=== PATIENT | male | born 1990 | race Caucasian/White ===

== ENCOUNTER 2020-04-06 12:44 | Outpatient (REF) | payer OTHER, SELFPAY ==
--- NOTE | 2020-04-06 14:19 | ECG_ITS ---
Test Reason : CP Blood Pressure : / mmHG Vent. Rate : 081 BPM Atrial Rate : 081 BPM P-R Int : 154 ms QRS Dur : 096 ms QT Int : 352 ms P-R-T Axes : 019 -10 013 degrees QTc Int : 408 ms Normal sinus rhythm Minimal voltage criteria for LVH, may be normal variant Borderline ECG No previous ECGs available Referred By: Mago Hoover Electronically Signed By:MARGY HERNANDEZ MD
[2020-04-06 14:39] LABS: MANUAL DIFF FLAG NO
--- NOTE | 2020-04-06 14:41 | XR_ITS ---
EXAMINATION: XR CHEST CLINICAL INFORMATION: Preprocedure COMPARISON: March 15, 2016 TECHNIQUE: 2 views of the chest were obtained. FINDINGS: No significant abnormality is noted involving the heart, lungs, mediastinum, bony thorax or soft tissues. XR/XR chest 2V IMPRESSION: No acute disease.
[2020-04-06 14:42] LABS: Basophils Percent Auto 0.4 % (0-2); Eosinophils Percent Auto 1.9 % (0-4); Hematocrit 43.7 % (42-52); Hemoglobin 13.6 g/dl (14.0-18.0); Imm Gran Pct Auto 0.5 % (0.0-0.4); Lymphocytes Percent Auto 25.4 % (20-40); Mean Corpuscular HGB Conc 31.1 g/dl (31.0-36.0); Mean Corpuscular Hemoglobin 25.2 pg (27.0-33.0); Mean Corpuscular Volume 80.9 fL (80-98); Mean Platelet Volume 9.7 fL (9.4-12.4); Monocytes Percent Auto 7.2 % (2-11); Neutrophils Percent Auto 64.6 % (45-73); Platelet Count 317 X10*3/uL (160-400); Red Cell Distribution Width 13.2 % (11.0-16.0); White Blood Count 7.9 X10*3/uL (4.8-10.8)
[2020-04-06 14:43] LABS: Eosinophils Absolute Auto 0.2 X10*3/uL (0.0-0.4); Imm Gran Abs Auto 0.04 X10*3/uL (0.00-0.03); Monocytes Absolute Auto 0.6 X10*3/uL (0.1-1.2); Neutrophils Absolute Auto 5.1 X10*3/uL (2.0-8.3)
[2020-04-06 14:57] LABS: Estimated Average Glucose 128 mg/dL; Hemoglobin A1C 150.9806 umol/L; Hemoglobin A1c % 6.1 %
[2020-04-06 15:10] LABS: Alanine Aminotransferase 29 U/L (0-40); Albumin Level 3.9 g/dL (3.5-5.0); Alkaline Phosphatase 62 U/L (39-117); Anion Gap 11 (12-20); Aspartate Amino Transferase 18 U/L (5-37); Bilirubin Total 0.5 mg/dL (0.0-1.0); Blood Urea Nitrogen 13 mg/dL (9-16); C Reactive Protein 1.04 mg/dL (< or = 0.50); Carbon Dioxide 32 mmol/L (22-29); Chloride 102 mmol/L (96-108); Cholesterol 137 mg/dL; Estimated Glomerular Filt Rate > 60; Glucose Random 114 mg/dL (60-115); HDL Cholesterol 33 mg/dL; Iron 73 mcg/dL (45-160); LDL Cholesterol Calculated 65 mg/dl; Percent Iron Saturation 22 % (15-50); Potassium 4.4 mmol/l (3.3-5.1); Sodium 141 mmol/L (135-145); Total Iron Binding Capacity 327 mcg/dL (228-428); Total Protein 7.1 g/dL (6.5-8.0); Triglycerides 196 mg/dL; Unsaturated Iron Binding 254 ug/dL
[2020-04-06 15:33] LABS: Ferritin 69 ng/mL (20-250); TSH reflex Free T4 2.14 mIU/mL (0.32-4.0); Vitamin D 25-OH Total 6.2 ng/mL (>30)
[2020-04-06 15:43] LABS: Folate 9.9 ng/mL (> or = 4.0); Vitamin B12 521 pg/mL (200-900)
[2020-04-07 16:52] LABS: Calcium (PTHI) 9.4 mg/dL (8.6-10.3); PTHI 53 pg/mL (14-64)
[2020-04-07 19:37] LABS: Insulin Level Total 26.2 uIU/mL
[2020-04-08 14:52] LABS: H Pylori Breath Test NOT DETECTED (NOT DETECTED)
[2020-04-09 16:07] LABS: Zinc 75 mcg/dL (60-130)
[2020-04-11 06:33] LABS: Vitamin B1 7 nmol/L (8-30)
[2020-04-12 17:47] LABS: Vitamin A 37 mcg/dL (38-98)
== END 2020-04-06 12:45 | disposition home or self-care (01) ==
LOC: HO.LAB 12:44
PROVIDERS: PCP Internal Medicine; Visit Provider Physician Assistant
DX: Z01.818 Encounter for other preprocedural examination (principal); E66.01 Morbid (severe) obesity due to excess calories; J45.909 Unspecified asthma, uncomplicated; G47.30 Sleep apnea, unspecified; Z88.0 Allergy status to penicillin; Z90.3 Acquired absence of stomach [part of]; Z68.44 Body mass index [BMI] 60.0-69.9, adult; Z98.84 Bariatric surgery status
CPT/HCPCS: 36415; 71046; 80053; 80061; 82306; 82607; 82728; 82746; 83013; 83036; 83525; 83540; 83970; 84425; 84443; 84590; 84630; 85025; 86140; 93005; 93225

== ENCOUNTER → 2020-04-21 08:42 | Outpatient (BNVA) | payer OTHER, SELFPAY | PROVIDERS: PCP Internal Medicine; Visit Provider Physician Assistant ==

== ENCOUNTER → 2020-05-05 13:56 | Outpatient (BNVA) | payer OTHER, SELFPAY | PROVIDERS: PCP Internal Medicine; Visit Provider Surgery | DX: E55.9 Vitamin D deficiency, unspecified (principal); Z01.818 Encounter for other preprocedural examination ==

== ENCOUNTER → 2020-05-19 08:26 | Outpatient (BNVA) | payer OTHER, SELFPAY | PROVIDERS: PCP Internal Medicine; Visit Provider Dietitian, Registered ==

== ENCOUNTER → 2020-05-25 15:44 | Outpatient (BNVA) | payer OTHER, SELFPAY | PROVIDERS: PCP Internal Medicine; Visit Provider Surgery | DX: E55.9 Vitamin D deficiency, unspecified (principal); Z01.818 Encounter for other preprocedural examination ==

== ENCOUNTER → 2020-06-09 15:51 | Outpatient (BNVA) | payer OTHER, SELFPAY | PROVIDERS: PCP Internal Medicine; Visit Provider Surgery | DX: E55.9 Vitamin D deficiency, unspecified (principal); Z01.818 Encounter for other preprocedural examination ==

== ENCOUNTER → 2020-06-20 15:31 | Outpatient (BNVA) | payer OTHER, SELFPAY | PROVIDERS: PCP Internal Medicine; Visit Provider Surgery | DX: E55.9 Vitamin D deficiency, unspecified (principal); Z01.818 Encounter for other preprocedural examination ==

== ENCOUNTER → 2020-06-23 14:00 | Outpatient (BNVA) | payer OTHER, SELFPAY | PROVIDERS: PCP Internal Medicine; Visit Provider Physician Assistant ==

== ENCOUNTER 2020-07-19 05:51 | Inpatient (IN) | payer OTHER, SELFPAY ==
--- NOTE | 2020-07-13 09:31 | ECG_ITS ---
Test Reason : SOB Blood Pressure : / mmHG Vent. Rate : 078 BPM Atrial Rate : 078 BPM P-R Int : 178 ms QRS Dur : 106 ms QT Int : 372 ms P-R-T Axes : 046 -12 039 degrees QTc Int : 424 ms Normal sinus rhythm Normal ECG When compared with ECG of 06-APR-2020 14:34, No significant change was found Referred By: Lina Sloan Electronically Signed By:Flaco Toledo
[2020-07-13 10:25] LABS: MANUAL DIFF FLAG NO
[2020-07-13 10:55] LABS: Basophils Percent Auto 0.3 % (0-2); Eosinophils Absolute Auto 0.2 X10*3/uL (0.0-0.4); Eosinophils Percent Auto 1.5 % (0-4); Hematocrit 46.9 % (42-52); Hemoglobin 14.4 g/dl (14.0-18.0); Imm Gran Abs Auto 0.02 X10*3/uL (0.00-0.03); Imm Gran Pct Auto 0.2 % (0.0-0.4); Lymphocytes Absolute Auto 2.6 X10*3/uL (1.2-4.9); Lymphocytes Percent Auto 25.6 % (20-40); Mean Corpuscular HGB Conc 30.7 g/dl (31.0-36.0); Mean Corpuscular Volume 81.4 fL (80-98); Mean Platelet Volume 10.9 fL (9.4-12.4); Monocytes Absolute Auto 0.7 X10*3/uL (0.1-1.2); Monocytes Percent Auto 7.1 % (2-11); Neutrophils Absolute Auto 6.6 X10*3/uL (2.0-8.3); Neutrophils Percent Auto 65.3 % (45-73); Platelet Count 347 X10*3/uL (160-400); Red Blood Count 5.76 X10*6/uL (4.60-5.80); Red Cell Distribution Width 13.8 % (11.0-16.0); White Blood Count 10.1 X10*3/uL (4.8-10.8)
[2020-07-13 10:58] LABS: INTERNATIONAL NORM RATIO 1.2 (0.9-1.1); Prothrombin Time 14.1 SEC (10.8-13.0)
[2020-07-13 11:00] LABS: Glucose Urine UA NEG (NEG); Leukocyte Esterase Urine NEG (NEG); Nitrite Urine NEG (NEG); Specific Gravity - Urine >= 1.030 (1.005-1.025); Urine Blood NEG (NEG); Urine Ketones NEG (NEG); Urine Protein NEG (NEG-TRACE)
[2020-07-13 11:05] LABS: Appearance Urine CLEAR; Color Urine YELLOW
[2020-07-13 11:12] LABS: Albumin Level 4.3 g/dL (3.5-5.0); Anion Gap 12 (12-20); Blood Urea Nitrogen 16 mg/dL (9-16); Calcium 9.5 mg/dL (8.4-10.2); Carbon Dioxide 31 mmol/L (22-29); Chloride 102 mmol/L (96-108); Estimated Glomerular Filt Rate > 60; Glucose Random 80 mg/dL (60-115); Potassium 3.8 mmol/L (3.3-5.1); Sodium 141 mmol/L (135-145)
[2020-07-13 11:26] LABS: Partial Thromboplastin Time 48.1 SEC (24.1-38.0)
[2020-07-14 09:58] VITALS: BMI 55.0
--- NOTE | 2020-07-16 13:06 | MHC.SHP ---
Pre-Procedural Eval Section B Chief Complaint: Morbid Severe Obesity Allergies: Allergies Allergy/AdvReac Type Severity Reaction Status Date / Time Penicillins [PENICILLINS] Allergy Unknown Hives Verified 07/14/20 09:57 Plan I have reviewed the history and physical and performed a pertinent physical examination on my patient. No changes have occurred unless specified.
[2020-07-19] VITALS (26 sets, daily range): BP systolic 118–165; BP diastolic 70–101; PULSE 82–97; RESP 14–20; TEMP 36.3–38.1; O2SAT 92–100
[2020-07-19 09:51] LABS: COVID-19 Test Negative (Negative)
[2020-07-19] MEDS: Lactated Ringers 1,000 ML 50 ML IV (10:20)
--- NOTE | 2020-07-19 11:31 | HO.ANESPROP2 ---
[facility] Active Problems Active Problems: All Active Problems (Updated 06/20/20 @ 15:54 by Lina Sloan MD) Shortness of breath (Acute) Preoperative examination (Acute) Adjustment disorder, unspecified (Acute) BMI 50.0-59.9, adult (Acute) Morbid obesity with BMI of 60.0-69.9, adult (Acute) Asthma (Acute) Morbid obesity (Acute) Past Medical History Medical History Sleep apnea with use of continuous positive airway pressure (CPAP) Vitamin D deficiency Family History Family History Father No problems noted. Mother No problems noted. Sister No problems noted. Sister No problems noted. Brother No problems noted. Surgical History Surgical History No pertinent past surgical history Social History Social History Are you a primary rn urgent care to a significant other at home: No Do you presently have visiting nurse or other home services: No Alcohol intake: never Smoking Status: Never smoker Use of substances other than those prescribed or required for medical reasons: No Have you been hit, kicked, punched, or otherwise hurt by someone within the past year? If so, by whom?: No Advance Directives: No Advance Directives Information Provided: No Advance Directives on File: No Recently lost weight without trying: No Meds Allergies Allergy/AdvReac Type Severity Reaction Status Date / Time Penicillins [PENICILLINS] Allergy Unknown Hives Verified 07/14/20 09:57 Home Medications Medication Instructions Recorded Confirmed Last Taken Type multivitamin 1 tab PO DAILY 05/25/20 07/14/20 Unknown History Exam Exam Date and Time: July 19, 2020 1131 Height,Weight and Vital Signs: Height 5 ft 6.5 in Weight 156.943 kg Last Vital Signs Temp 98.7 F 07/19/20 09:52 Pulse 90 07/19/20 09:52 Resp 16 07/19/20 09:52 BP 118/70 07/19/20 09:52 Pulse Ox 93 07/19/20 09:52 Pertinent Lab Results Pertinent Lab Results: Laboratory Tests 07/13/20 07/13/20 07/13/20 09:25 09:25 09:25 WBC 10.1 RBC 5.76 Hgb 14.4 Hct 46.9 MCV 81.4 MCH 25.0 L MCHC 30.7 L RDW 13.8 Plt Count 347 MPV 10.9 Immature Gran % (Auto) 0.2 Neut % (Auto) 65.3 Lymph % (Auto) 25.6 [place] % (Auto) 7.1 Eos % (Auto) 1.5 Baso % (Auto) 0.3 Lymph # (Auto) 2.6 [place] # (Auto) 0.7 Eos # (Auto) 0.2 Baso # (Auto) 0.0 Abs Immat Gran (auto) 0.02 Absolute Neuts (auto) 6.6 Absolute Nucleated RBC 0.000 Nucleated RBC % (auto) 0.0 PT 14.1 H INR 1.2 H APTT 48.1 H Sodium Potassium Chloride Carbon Dioxide Anion Gap BUN Creatinine Estim Creat Clear Calc Estimated GFR Random Glucose Calcium Albumin 25-OH Vitamin D Total Urine Color YELLOW Urine Appearance CLEAR Urine pH 6.0 Ur Specific [place] >= 1.030 H Urine Protein NEG Urine Glucose (UA) NEG Urine Ketones NEG Urine Blood NEG Urine Nitrite NEG Ur Leukocyte Esterase NEG COVID-19 ([facility]) COVID-19 Clin Com Blood Type Antibody Screen 07/13/20 07/13/20 07/19/20 09:25 09:25 09:27 WBC RBC Hgb Hct MCV MCH MCHC RDW Plt Count MPV Immature Gran % (Auto) Neut % (Auto) Lymph % (Auto) [place] % (Auto) Eos % (Auto) Baso % (Auto) Lymph # (Auto) [place] # (Auto) Eos # (Auto) Baso # (Auto) Abs Immat Gran (auto) Absolute Neuts (auto) Absolute Nucleated RBC Nucleated RBC % (auto) PT INR APTT Sodium 141 Potassium 3.8 Chloride 102 Carbon Dioxide 31 H Anion Gap 12 BUN 16 Creatinine 0.91 Estim Creat Clear Calc TNP Estimated GFR > 60 Random Glucose 80 Calcium 9.5 Albumin 4.3 25-OH Vitamin D Total 23.0 Urine Color Urine Appearance Urine pH Ur Specific [place] Urine Protein Urine Glucose (UA) Urine Ketones Urine Blood Urine Nitrite Ur Leukocyte Esterase COVID-19 ([facility]I) Negative COVID-19 Clin Com See Note Blood Type O Positive Antibody Screen NEGATIVE Airway Mallampati Class: II TM Dist: >3cm Neck ROM: Full Heart: RRR Lungs: CTA
--- NOTE | 2020-07-19 13:57 | PM.OP ---
Brief Operative Note Date of Service: 07/19/20 Pre-op diagnosis: Morbid obesity, BMI Post-op diagnosis: same Procedure: Laparoscopic sleeve gastrectomy, neeru block, and intraoperative endoscopy Implants: None Surgeon: Lina Sloan MD Anesthesia: GETA Estimated blood loss (mL): 5 Pathology: other (Partial gastrectomy) Condition: stable Disposition: PACU
--- NOTE | 2020-07-19 13:57 | PM.PNGS ---
Subjective Subjective Date of Service: 07/20/20 <Sherri Pike PA-C - Last Filed: 07/20/20 16:51> 07/20/20 <Lina Sloan MD - Last Filed: 07/20/20 09:23> Interval history: POD #1: Patient is doing well. Has been ambulating, using the incentive spirometer, and tolerating po liquids. No nausea or abdominal pain. Has some mild incisional pain. <Sherri Pike PA-C - Last Filed: 07/20/20 16:51> Pod #1 s/p lap sleeve gastrectomy. Doing well. Tolerating stage 3 diet, ambulating in hallway. Pain well controlled. Denies nausea or vomiting. Vitals and labs reviewed and are within limit for post op day 1. On exam, patient is well appearing, abdomen is soft, nd, mild appropriate incisional tenderness. Incisions c/d/I with dermabond in place. Plan: d/c home today. Follow up with me in 2 weeks. <Lina Sloan MD - Last Filed: 07/20/20 09:23> Physical Exam Vital Signs: Vital Signs: Last Vital Signs Temp 100.5 F H 07/19/20 13:45 Pulse 86 07/19/20 13:54 Resp 18 07/19/20 13:54 BP 155/94 H 07/19/20 13:54 Pulse Ox 96 07/19/20 13:54 Body Mass Index 55.0 <Sherri Pike PA-C - Last Filed: 07/20/20 16:51> Const: General: cooperative, comfortable, no acute distress, alert and awake <Sherri Pike PA-C - Last Filed: 07/20/20 16:51> Nutritional Appearance: obese <Sherri Pike PA-C - Last Filed: 07/20/20 16:51> GI: Inspection: Yes normal to inspection, Yes incision (normal, slight erythema at site of surgical glue, no tenderness/warmth/drai) and Yes obesity <Sherri Pike PA-C - Last Filed: 07/20/20 16:51> Extrem: Right lower extremity: lower leg Details: no tenderness; no edema <Sherri Pike PA-C - Last Filed: 07/20/20 16:51> Left lower extremity: lower leg Details: no tenderness; no edema <VERENICE Newman Last Filed: 07/20/20 16:51> Progress Note: A&P Assessment and plan (1) Morbid obesity with BMI of 60.0-69.9, adult: Status: Acute <Sherri Pike PA-C - Last Filed: 07/20/20 16:51> (2) Intestinal malabsorption following gastrectomy: Status: Acute <Sherri Pike PA-C - Last Filed: 07/20/20 16:51> (3) S/P laparoscopic sleeve gastrectomy: Status: Acute <VERENICE Newman Last Filed: 07/20/20 16:51> Assessment and Plan: POD #1: Patient is doing well and will be discharged home today. All the discharge instructions were reviewed with the patient and given in writing. Patient will follow up as scheduled in 2 weeks. <Sherri Pike PA-C - Last Filed: 07/20/20 16:51> Fall Risk Details Current Medications: Current Medications Generic Name Dose Route Start Last Admin Trade Name Freq PRN Reason Stop Dose Admin Fentanyl 25 mcg 07/19/20 11:33 Fentanyl Citrate/Pf 100 Mcg/2 Ml Vial IVPUSH Q5M PRN Pain, Moderate (Pain Scale 4-6 Lactated Ringer's 1,000 mls @ 50 mls/hr 07/19/20 11:45 07/19/20 10:20 Lr IV 50 mls/hr .Q20H ANNIKA Administration Ondansetron HCl 4 mg 07/19/20 11:33 Ondansetron Hcl 4 Mg/2 Ml Vial IVPUSH ONCE PRN Nausea and Vomiting Oxycodone HCl 5 mg 07/19/20 11:33 Oxycodone Hcl Immed Release 5 Mg Tablet PO ONCE PRN Pain, Severe (Pain Scale 7-10) <VERENICE Newman Last Filed: 07/20/20 16:51> Time Spent With Patient Time: Total time spent is greater than 50% in coordination of care (as documented) at patient's floor/unit and/or counseling patient: <VERENICE Newman Last Filed: 07/20/20 16:51> Time with patient: less than 15 minutes <Lina Sloan MD - Last Filed: 07/20/20 09:23>
--- NOTE | 2020-07-19 13:58 | P.OP_ITS ---
Operative Note Operative Note Date of Service: 07/19/20 Narrative: Patient was brought into the operating room and placed on the operating room table in the supine position. General anesthesia was induced. Normal DVT prophylaxis was instituted and the patient received 2 grams of cefotetan preoperatively. The abdomen was then prepped and draped in the normal sterile fashion. A safety time-out was performed. A mixture of 1% lidocaine with epinephrine and ?% Marcaine plain was used to an esthetize the planned incision site in the left upper quadrant. A #11 scalpel was used to make a 5 mm left upper quadrant transverse incision through which a veress needle was placed. Three pops were heard going through the fascia. A saline drop test was used to confirm that the veress needle was intraabdominal. An optiview technique was then used to place a 5mm port in the left upper quadrant. A 5 mm 30 degree laproscope was then placed through this port and the abdominal cavity was surveyed and was normal. The patient was placed in reverse Trendelenburg positioning. A gem liver retractor was then placed in the subxyphoid position and it was used to hold up the left lobe of the liver to the abdominal wall. This was secured to the bed using the liver retractor morales. A MILO block was then performed for pain control on the right side of the abdomen. A 5 mm port was placed in the right upper quadrant near the falciform ligament. A 12 mm port was then placed in the mid epigastrium. One additional 5 mm port was placed in the left upper quadrant just to the left of the placement of the first port. I then performed a MILO block on the left side of the abdomen. I then removed the epigastric fat pad; there was no evidence of hiatal hernia. I then opened up the angle of His. We then gained entry into the lesser sac about 4-5 cm from the pylorus. I had anesthesia place a 34 [place] orogastric tube into the distal antrum to use as a sizing tool for gastric pouch size. I divided the short gastric vessels up to the angle of His. We then started the creation of the gastric pouch by firing a 60 mm purple load endostapler up the stomach about 4-5 cm from the pylorus. We completed the creation of the gastric pouch using a total of 4 firings of a 60 mm purple load stapler. We had anesthesia remove the orogastric tube, then we clamped across the distal antrum using a fired 60 mm endostapler. We flattened the patient and then instilled normal saline surrounding the newly created staple line. I then performed an on-table endoscopy. I passed the gastroscopy into the posterior oropharynx and down the esophagus evaluating the esophageal mucosa which was normal. There was no evidence of hiatal hernia. I passed the gastroscope into the gastric pouch and insufflated the gastric pouch. There was healthy pink mucosa and no evidence of active bleeding. There was no evidence of leak on laparoscopy. I desufflated the gastric pouch and removed the endoscope. I removed the endostapler from the abdomen and suctioned the fluid from the left upper quadrant. I then removed the partial gastrectomy specimen through the epigastric 12 mm port site. I reapproximated the 12 mm port using a 0 maxon suture with a laparoscopic suture passer. I instilled local anesthetic into the fascial closure site and tied the suture down at a pressure of 8-10 mm of Hg. There was no residual fascial defect. We removed the liver retractor and the left upper quadrant 5 mm ports under direct visualization. There was no evidence of any active bleeding. I desufflated the abdomen through the last remaining port and removed the laparoscope an d 5 mm port. We reapproximated all incisions with a 4-0 monocryl subcuticular stitch. We cleaned and dried the abdominal skin and applied dermabond skin glue. All count were correct at the end of the case. The patient was awake and in stable condition prior to extubation and transfer to the recovery room.
--- NOTE | 2020-07-19 14:01 | P.DS_ITS ---
DS: Providers Provider Date of Service: 07/20/20 Date of admission: 07/19/20 05:51 Primary care physician: Unknown Physician DS: Diagnosis Discharge Diagnosis (1) Morbid obesity with BMI of 60.0-69.9, adult: Status: Acute (2) Intestinal malabsorption following gastrectomy: Status: Acute (3) S/P laparoscopic sleeve gastrectomy: Status: Acute DS: Medications Discharge Medications Home Medications: Home Medications Medication Instructions Recorded Confirmed multivitamin 1 tab PO DAILY 05/25/20 07/14/20 Previous Rx's Medication Instructions Recorded cholecalciferol (vitamin D3) 1,250 1,250 mcg PO QWEEK #4 cap 05/05/20 mcg (50,000 unit) capsule acetaminophen 500 mg tablet 1,000 mg PO Q6H PRN #30 tab 06/20/20 docusate sodium 100 mg capsule 100 mg PO BID #30 cap 06/20/20 famotidine 20 mg tablet 20 mg PO DAILY #30 tab 06/20/20 ondansetron HCl 4 mg tablet 4 mg PO Q6H PRN #30 tab 06/20/20 simethicone 80 mg chewable tablet 80 mg PO TID-QID PRN #30 tab 06/20/20 DS: Summary Time Spent with Patient Time attestation: Total time spent providing and/or coordinating discharge services: Discharge coordination time: Greater than 30 minutes Physical Exam Vital Signs: Vital Signs: Last Vital Signs Temp 100.5 F H 07/19/20 13:45 Pulse 86 07/19/20 13:54 Resp 18 07/19/20 13:54 BP 155/94 H 07/19/20 13:54 Pulse Ox 96 07/19/20 13:54 Body Mass Index 55.0 DS: Data Data Completed and Pending Pending studies at discharge: Pending at discharge 07/19/20 13:28 Surgical [PTH] Routine Labs on day of discharge: Laboratory Results - last 24 hr 07/19/20 09:27 COVID-19 ([facility]) Negative COVID-19 Clin Com See Note Discharge Plan Discharge Patient Disposition: Home, Self-Care Discharge Diagnosis: obesity s/p LSG Referrals: Physician,Unknown [Primary Care Provider] - 1 Week Discharge Medications: Continued cholecalciferol (vitamin D3) 1,250 mcg (50,000 unit) capsule 1,250 mcg PO QWEEK Qty: 4 RF: 2 multivitamin Tablet 1 tab PO DAILY RF: 0 acetaminophen [Tylenol Extra Strength] 500 mg tablet 1,000 mg PO Q6H PRN (Reason: pain) Qty: 30 RF: 1 famotidine [Pepcid AC] 20 mg tablet 20 mg PO DAILY Qty: 30 RF: 1 simethicone [Gas Relief (simethicone)] 80 mg tablet,chewable 80 mg PO TID-QID PRN (Reason: abdominal distention) Qty: 30 RF: 1 ondansetron HCl [Zofran] 4 mg tablet 4 mg PO Q6H PRN (Reason: nausea and vomiting) Qty: 30 RF: 1 docusate sodium [Colace] 100 mg capsule 100 mg PO BID Qty: 30 RF: 1 Discharge Orders: Discharge Order (Routine); Ordered 07/20/20 Ordered By: Lina Sloan Diet: other Activity on Discharge: No heavy lifting Stand Alone Forms: Patient Portal Discharge page Activity Restrictions/Additional Instructions: Discharge Instructions 1. Please call your doctor or come back to the emergency room should any new symptoms arise. 2. You will receive a courtesy call from [facility] 24-48 hours after discharge. 3. Activity: abstain from alcohol, practice limited stair climbing, no bending, no driving, no exercise, no illicit substances, no lifting, no sex, no tub bath, no work. 4. Diet: continue stage 3 protein shakes until your [address] Sloan. 5. Dressing Change/Wound Care: Your incision is covered by surgical glue. If the area is tender, you may apply an ice pack for short intervals (no more than 20 minutes on, followed by at least 20 minutes off). Do not apply heat. Do not use creams, lotions, or topical antibiotics unless instructed to do so by your surgeon. These can cause infection or allergic reaction. 6. Call your doctor if: - Your temperature exceeds 101.5 F - You experience excessive pain or swelling - You have an unexpected reaction to medication - You have excessive bleeding - You experience continued vomiting/nausea - Your incision begins to separate - Your incision shows signs of infection such as increased redness, swelling, excessive pain, heat, or drainage (light blood or clear fluid is normal) 7. General instructions: - No lifting greater than 5 lbs for the next 4 weeks. - No driving within 24 hours of taking narcotic pain medications. - If you do not move your bowels in the next 2 days, please take milk of magnesia over the counter. Please follow the post op diet and do not advance your diet until you are seen in the office in about 2 weeks. - Please walk around your home every hour or two to prevent blood clots from forming in your legs. You do not need to wake from sleeping to walk. - Please sleep in a bed or couch to prevent kinking at the hips and knees. - Please take your incentive spirometer (your lung certified orthotist/pedorthist) home with you and use it for the next few days to prevent pneumonias. - You may shower, no hot tubs, baths or swimming pools. - Please call the office with any questions or concerns such as increasing abdominal pain, fever, chills, shortness of breath, chest pain, leg pain or swelling, or redness or drainage from your incisions. - Please stay on stage 3 diet which includes sugar free clear liquids such as ice pops and jello and broth and crystal light. Avoid all carbonation. Please drink 3 protein shakes with at least 25-30 grams of protein daily or 3 of the Celebrate 4:1 shakes which can be purchased in our office. The Celebrate shakes have all of the bariatric vitamins you need if you consume these shakes. If you are drinking other protein shakes, you will need to purchase the Celebrate multivitamins and calcium that we provide in the office (they will provide all the vitamins you need). Please make sure you are consuming at least 40-60 ounces of water in addition to your 3 protein shakes daily. 8. Do not hesitate to contact the office with any questions at . Discharge Summary Date of Service: 07/20/20 Pre-op diagnosis: Morbid obesity, BMI Post-op diagnosis: same Procedure: Laparoscopic sleeve gastrectomy, neeru block, and intraoperative endoscopy Discharge Medications: 1. Simethicone 80mg tablet chewable (Si tablet every 6 hours orally for 7 days, #28, 1 RF) q4h prn gas 2. Acetaminophen 500 mg tablet (Si tablets as needed every 6 hours orally for 30 days, #240, 0 RF) 3. Ondansetron 4 mg tablet disintegrating (Si tablet every 6 hours orally for 7 days, #28, 1 RF) 4. Colace 100 mg capsule (Si capsule twice a day for 30 days, #60, 2 RF) 5. Pepcid 20 mg chewable tablet (Si tablet twice a day for 30 days, #60, 3 RF) Discharge Instructions: The patient should continue on the stage III bariatric diet, which includes 3 protein shakes of at least 20-30g of protein on a daily basis. The patient was encouraged to avoid drinking liquids with her protein shakes. They should wait 30-45 minutes in between her meals and drinking water. She should drink at least 40-60 ounces of water on a daily basis. They should ambulate while at home to avoid any blood clots in her lower extremities. They should call with any questions or concerns such as increase in abdominal pain, persistent nausea, vomiting, redness and drainage from her incisions, fever, chills, shortness of breast, or chest pain beyond what is normal for her. The patient should avoid all heavy lifting greater than 5 pounds for the next 4 weeks. The patient is already scheduled to follow up with me in 2 weeks time, but should call the office with any questions prior to that follow up appointment. The patient should not advance their diet until they are seen in the office for the 2 week appointment. Hospital Course: The patient was admitted after undergoing SURGERY. They were started on stage II (1 oz of fluid every 15 minutes) on POD #0. The next morning they were evaluated and started on stage III diet (protein shakes). All labs were within normal limits. On post-operative day #1 she was feeling better, nausea and epigastric pain improved and they were tolerating stage III bariatric diet well. The patient was discharged home. Discharge Disposition: Home. Care Plan Goals: weight loss Health Concerns: obesity Plan of Treatment: s/p LSG Assessment: POD #1 s/p LSG, discharged home Discharge Date/Time: 07/20/20 10:53
[2020-07-19] MEDS: Metoclopramide HCl 10 MG/2 ML VIAL IVPUSH (14:13)
[2020-07-19] MEDS: Famotidine/PF 20 MG/2 ML VIAL IVPUSH ×2 (14:16→21:03)
[2020-07-19] MEDS: fentaNYL citrate/PF 100 MCG/2 ML VIAL 25 MCG IVPUSH ×4 (14:24→15:35)
[2020-07-19] MEDS: oxyCODONE HCl Immed Release 5 MG TABLET PO (16:41)
[2020-07-19] MEDS: HYDROmorphone HCl 0.5 MG/0.5 ML SYRINGE 0.25 MG IVPUSH ×2 (18:20→22:20)
[2020-07-19] MEDS: Lactated Ringers 1,000 ML 125 ML IVCONT (18:27)
[2020-07-19] MEDS: 0.9 % Sodium Chloride Flush 3 ML SYRINGE IVFLUSH (21:03)
[2020-07-20] MEDS: cefoTEtan disodium 2 GM in 0.9 % Sodium Chloride 50 ML IV (00:26)
[2020-07-20] MEDS: ondansetron HCL 4 MG/2 ML VIAL IVPUSH ×2 (02:32→09:27)
[2020-07-20] MEDS: Lactated Ringers 1,000 ML 125 ML IVCONT (02:34)
[2020-07-20] MEDS: HYDROmorphone HCl 0.5 MG/0.5 ML SYRINGE 0.25 MG IVPUSH (03:39)
[2020-07-20 03:40] VITALS: BP 146/88; PULSE 85; RESP 20; TEMP 36.9; O2SAT 95
[2020-07-20 06:37] LABS: MANUAL DIFF FLAG NO
[2020-07-20 06:53] LABS: Basophils Percent Auto 0.1 % (0-2); Hemoglobin 13.7 g/dl (14.0-18.0); Imm Gran Abs Auto 0.07 X10*3/uL (0.00-0.03); Imm Gran Pct Auto 0.5 % (0.0-0.4); Lymphocytes Percent Auto 7.3 % (20-40); Mean Corpuscular HGB Conc 31.1 g/dl (31.0-36.0); Mean Corpuscular Hemoglobin 25.1 pg (27.0-33.0); Mean Corpuscular Volume 80.7 fL (80-98); Mean Platelet Volume 10.1 fL (9.4-12.4); Monocytes Absolute Auto 0.7 X10*3/uL (0.1-1.2); Monocytes Percent Auto 5.1 % (2-11); Neutrophils Absolute Auto 11.8 X10*3/uL (2.0-8.3); Platelet Count 348 X10*3/uL (160-400); Red Blood Count 5.45 X10*6/uL (4.60-5.80); Red Cell Distribution Width 13.8 % (11.0-16.0); White Blood Count 13.6 X10*3/uL (4.8-10.8)
[2020-07-20] MEDS: Famotidine/PF 20 MG/2 ML VIAL IVPUSH (07:22)
[2020-07-20 07:31] LABS: Anion Gap 13 (12-20); Blood Urea Nitrogen 8 mg/dL (9-16); Calcium 9.5 mg/dL (8.4-10.2); Carbon Dioxide 29 mmol/L (22-29); Chloride 101 mmol/L (96-108); Estimated Glomerular Filt Rate > 60; Glucose Random 112 mg/dL (60-115); Potassium 4.3 mmol/L (3.3-5.1); Sodium 139 mmol/L (135-145)
[2020-07-20 07:43] VITALS: BP 155/99; PULSE 85; RESP 19; TEMP 37.1; O2SAT 96
--- NOTE | 2020-07-20 08:58 | HO.POSTANES ---
Post Anesthesia Evaluation Post Anesthesia Evaluation Vital Signs: Vital Signs Temp Pulse Resp BP Pulse Ox 07/20/20 07:43 98.8 F 85 19 155/99 H 96 07/20/20 03:40 98.5 F 85 20 146/88 H 95 07/19/20 23:24 97.3 F 95 20 127/73 94 Anesthesia: General Endotracheal-GETA Mental Status: Awake Pain Control: Satisfactory Nausea/Vomiting: None Hydration: Adequate Anesthesia-Related Issues: No Anes. Related Issues
--- NOTE | 2020-07-20 12:19 | MHC.CM.PN ---
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 CASE MANAGEMNT OFFICE TO CHECK INTO THIS . 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
== END 2020-07-20 10:53 | disposition home or self-care (01) | DRG 403 ==
LOC: HO.SSSA 14:06 → HO.S3 14:33
PROVIDERS: Physician Assistant; Admitting Provider Surgery; Visit Provider Surgery
PROC: 0DB64Z3 Excision of Stomach, Percutaneous Endoscopic Approach, Vertical (ICD-10-PCS; CPT 43845; principal; 2020-07-19 11:40)
DX: E66.01 Morbid (severe) obesity due to excess calories (principal); G47.30 Sleep apnea, unspecified; Z20.822 Contact with and (suspected) exposure to COVID-19; Z88.0 Allergy status to penicillin; Z68.43 Body mass index [BMI] 50.0-59.9, adult; Z99.89 Dependence on other enabling machines and devices; Z79.899 Other long term (current) drug therapy
CPT/HCPCS: 36415; 80048; 81003; 82040; 82306; 85025; 85610; 85730; 86850; 86900; 86901; 87635; 88307; 88342; 93005; 99024; C1776; J0131; J1100; J1170; J2250; J2405; J2550; J2765; J3010

== ENCOUNTER → 2020-07-27 12:55 | Outpatient (BNVA) | payer OTHER, SELFPAY | PROVIDERS: Visit Provider Physician Assistant ==

== ENCOUNTER → 2020-08-04 12:58 | Outpatient (BNVA) | payer OTHER, SELFPAY | PROVIDERS: Visit Provider Surgery ==

== ENCOUNTER → 2020-09-05 15:24 | Outpatient (BNVA) | payer OTHER, SELFPAY | PROVIDERS: Visit Provider Physician Assistant ==

== ENCOUNTER → 2020-10-17 15:34 | Outpatient (BNVA) | payer OTHER, SELFPAY | PROVIDERS: Visit Provider Physician Assistant ==

== ENCOUNTER 2020-11-29 19:33 | Outpatient (REF) | payer OTHER, SELFPAY ==
[2020-11-29 20:23] LABS: COVID-19 Test Negative (Negative); IDNOW Serial# 55D5AD1C
== END 2020-11-29 19:34 | disposition home or self-care (01) ==
LOC: HO.LAB 19:33
PROVIDERS: Visit Provider Internal Medicine
DX: Z20.822 Contact with and (suspected) exposure to COVID-19 (principal)
CPT/HCPCS: 36415; 87635

== ENCOUNTER → 2020-12-11 11:34 | Outpatient (BNVA) | payer OTHER, SELFPAY | PROVIDERS: Visit Provider Surgery ==

== ENCOUNTER → 2021-01-18 15:24 | Outpatient (BNVA) | payer OTHER, SELFPAY | PROVIDERS: Visit Provider Physician Assistant Surgical ==

== ENCOUNTER 2021-02-13 05:36 | Emergency (ER) | payer OTHER, SELFPAY ==
--- NOTE | 2021-02-13 | ECG_ITS ---
Test Reason : DIZZINESS Blood Pressure : / mmHG Vent. Rate : 058 BPM Atrial Rate : 058 BPM P-R Int : 202 ms QRS Dur : 100 ms QT Int : 412 ms P-R-T Axes : -04 -05 021 degrees QTc Int : 404 ms Sinus bradycardia Otherwise normal ECG When compared with ECG of 13-JUL-2020 08:38, No significant change was found Heart rate has decreased Referred By: Generic ED Physician Electronically Signed By:PHYLLIS KIM MD
[2021-02-13 05:41] VITALS: BP 93/57; PULSE 55; RESP 15; O2SAT 96; BMI 36.6
--- NOTE | 2021-02-13 05:48 | PC.NURSE ---
pt given dextrose for low blood sugar, pt was diaphoretic, pale, slightly unresponsive being wheeled in wheelchair. pt le s a iv, ivf, poc, dextrose, 2 large iv sites. pt on the monitor hr sr 62, ekg done at bedside.
[2021-02-13 05:51] LABS: Basophils Percent Auto 0.3 % (0-2); Eosinophils Absolute Auto 0.1 X10*3/uL (0.0-0.4); Eosinophils Percent Auto 1.1 % (0-4); Hematocrit 48.8 % (42.0-52.0); Hemoglobin 15.3 g/dl (14.0-18.0); Imm Gran Abs Auto 0.03 X10*3/uL (0.00-0.03); Imm Gran Pct Auto 0.2 % (0.0-0.4); Lymphocytes Absolute Auto 4.3 X10*3/uL (1.2-4.9); Lymphocytes Percent Auto 34.8 % (20-40); Mean Corpuscular HGB Conc 31.4 g/dl (31.0-36.0); Mean Corpuscular Hemoglobin 26.2 pg (27.0-33.0); Mean Corpuscular Volume 83.4 fL (80.0-98.0); Mean Platelet Volume 10.2 fL (9.4-12.4); Monocytes Absolute Auto 0.8 X10*3/uL (0.1-1.2); Monocytes Percent Auto 6.5 % (2-11); Neutrophils Absolute Auto 7.1 x10*3/uL (2.0-8.3); Neutrophils Percent Auto 57.1 % (45-73); Platelet Count 334 X10*3/uL (160-400); Red Blood Count 5.85 X10*6/uL (4.60-5.80); Red Cell Distribution Width 13.2 % (11.0-16.0); White Blood Count 12.4 X10*3/uL (4.8-10.8)
[2021-02-13 05:52] LABS: MANUAL DIFF FLAG NO
[2021-02-13 05:56] VITALS: O2SAT 99
[2021-02-13 06:12] LABS: Alanine Aminotransferase 19 U/L (0-40); Albumin Level 4.3 g/dL (3.5-5.0); Alkaline Phosphatase 61 U/L (39-117); Anion Gap 14 (12-20); Aspartate Amino Transferase 18 U/L (5-37); Bilirubin Total 0.6 mg/dL (0.0-1.0); Blood Urea Nitrogen 16 mg/dL (9-16); Carbon Dioxide 28 mmol/L (22-29); Chloride 101 mmol/L (96-108); Creatinine Clr Calc Pharmacy 145.7; Estimated Glomerular Filt Rate > 60; Glucose Random 91 mg/dL (60-115); Potassium 3.7 mmol/L (3.3-5.1); Sodium 139 mmol/L (135-145); Total Protein 7.4 g/dL (6.5-8.0)
[2021-02-13 06:14] LABS: Troponin-I High Sensitivity < 3.5 ng/L (<3.5-35.0)
[2021-02-13 06:26] VITALS: BP 91/64; PULSE 56; RESP 18; O2SAT 97
[2021-02-13 06:28] LABS: Glucose, Whole Blood 168 mg/dL (60-115)
[2021-02-13] MEDS: 0.9 % Sodium Chloride 1,000 ML 999 ML IVCONT ×2 (06:30→07:19)
[2021-02-13 06:34] LABS: Glucose, Whole Blood 82 mg/dL (60-115)
--- NOTE | 2021-02-13 06:42 | ED.SYNCOPE ---
HPI - Syncope General Chief Complaint: Syncope Stated Complaint: ?? 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 He got up and passed out again. This is the first time passing out. Patient had dysuria with the blood. Patient denies discharge from his penis. Patient lost 190 lbs in the last 6 months his surgeons are happy with his weight loss. Blood pressure running low now. MD complaint: loss of consciousness Onset (ago): hour(s) Context: other (post micturation) Treatments prior to arrival: none Related Data Home Medications Medication Instructions Recorded Confirmed calcium citrate 1,000 mg tablet 1,000 mg PO DAILY 08/04/20 02/13/21 [id number] 45 mg-folic 1 cap PO DAILY cap 08/04/20 02/13/21 acid 800 mcg-vit K 120 mcg capsule (Bariatric Multivitamins) Allergies Allergy/AdvReac Type Severity Reaction Status Date / Time Penicillins [PENICILLINS] Allergy Unknown Hives Verified 01/18/21 15:35 Review of Systems Constitutional: Constitutional: Reports no additional constitutional complaints Eyes: Eyes: Reports no additional eye complaints ENT: Denies dizziness Cardiovascular: Cardiovascular: Reports no additional cardiovascular complaints Respiratory: Respiratory: Reports as per HPI Gastrointestinal: Gastrointestinal: Reports no additional gastrointestinal complaints Musculoskeletal: Musculoskeletal: Reports no additional musculoskeletal complaints Integumentary/Breasts: Skin/Breast: Denies rash Neurologic: Reports system reviewed and no additional complaints, except as documented, Denies dizziness and Denies Sensory deficit (Neuro) Psychiatric: Psychiatric: Denies anxiety PMFSH Past Medical History Medical History Adjustment disorder, unspecified Asthma BMI 40.0-44.9, adult BMI 50.0-59.9, adult Intestinal malabsorption following gastrectomy Morbid obesity Preoperative examination Shortness of breath Sleep apnea with use of continuous positive airway pressure (CPAP) Vitamin D deficiency Surgical History No pertinent past surgical history S/P laparoscopic sleeve gastrectomy Family History Family History Father No problems noted. Mother No problems noted. Sister No problems noted. Sister No problems noted. Brother No problems noted. Social History Social History Are you a primary early breastfeeding care specialist to a significant other at home: No Do you presently have visiting nurse or other home services: No Alcohol intake: never Patient Tobacco Use Status: Never used Tobacco Use of substances other than those prescribed or required for medical reasons: No Advance Directives: No service: No Current occupational status: employed Physical Exam Vital Signs: Vital Signs: Last Vital Signs Pulse 62 02/13/21 08:49 Resp 18 02/13/21 08:49 BP 104/66 02/13/21 08:49 Pulse Ox 98 02/13/21 08:49 Body Mass Index 36.6 Const: General: healthy appearing Nutritional Appearance: average body habitus Orientation/consciousness: oriented to person and patient oriented x3 Limitations: no limitations HENMT: Head: Yes normal to inspection Ears: external ears normal General nose exam: Normal external nose present Mouth: Normal oral and palatal mucosa present and oropharynx normal Throat: Yes posterior oropharynx normal Eyes: General: appearance normal, both eyes and all related structures Neck: Other: supple Neck: Yes normal visual inspection Chest: Chest palpation & inspection: normal inspection of the chest Resp: Auscultation: clear to auscultation bilaterally Cardio: Jugular venous distension: no JVD Rate: regular rate Rhythm: regular rhythm Heart sounds: S1 normal heart sound present and S2 normal heart sound present GI: Inspection: Yes normal to inspection Palpation (GI): Soft to palpation, nontender and No hepatosplenomegaly present Auscultation: normal bowel sounds : General: Yes no CVA tenderness Back/Spine/Pelvis: Back: no CVA tenderness Skin: General skin exam: no rashes or lesions noted Neuro: General: oriented to person and patient oriented x3 Cranial nerves: Yes CN's II-XII intact bilaterally Motor exam (neuro): 5/5 motor strength present throughout Sensory Exam: No Sensory deficit (Neuro) Extrem: General: Yes normal to inspection Psych: Appearance: grossly normal Course Reevaluation(s) Reevaluation #1: Urine not infected, not orthostatic, feeling better. Impression is post micturition syncope vs vasovagal syncope from seeing blood Time: 10:52 MDM - Syncope Lab Data Result diagrams: 02/13/21 05:47 02/13/21 05:47 Labs: Lab Results 02/13/21 02/13/21 02/13/21 Range/Units 05:39 05:47 05:47 WBC 12.4 H (4.8-10.8) X10*3/uL RBC 5.85 H (4.60-5.80) X10*6/uL Hgb 15.3 (14.0-18.0) g/dl Hct 48.8 (42.0-52.0) % MCV 83.4 (80.0-98.0) fL MCH 26.2 L (27.0-33.0) pg MCHC 31.4 (31.0-36.0) g/dl RDW 13.2 (11.0-16.0) % Plt Count 334 (160-400) X10*3/uL MPV 10.2 (9.4-12.4) fL Immature Gran % (Auto) 0.2 (0.0-0.4) % Neut % (Auto) 57.1 (45-73) % Lymph % (Auto) 34.8 (20-40) % [place] % (Auto) 6.5 (2-11) % Eos % (Auto) 1.1 (0-4) % Baso % (Auto) 0.3 (0-2) % Lymph # (Auto) 4.3 (1.2-4.9) X10*3/uL [place] # (Auto) 0.8 (0.1-1.2) X10*3/uL Eos # (Auto) 0.1 (0.0-0.4) X10*3/uL Baso # (Auto) 0.0 (0.0-0.2) X10*3/uL Abs Immat Gran (auto) 0.03 (0.00-0.03) X10*3/uL Absolute Neuts (auto) 7.1 (2.0-8.3) x10*3/uL Absolute Nucleated RBC 0.000 (0.0-0.012) X10*3/uL Nucleated RBC % (auto) 0.0 (0.0-0.2) /100WBC Sodium 139 (135-145) mmol/L Potassium 3.7 (3.3-5.1) mmol/L Chloride 101 (96-108) mmol/L Carbon Dioxide 28 (22-29) mmol/L Anion Gap 14 (12-20) BUN 16 D (9-16) mg/dL Creatinine 0.82 (0.5-1.4) mg/dL Estim Creat Clear Calc 145.7 Estimated GFR > 60 POC Glucose 82 (60-115) mg/dL Random Glucose 91 (60-115) mg/dL Calcium 10.0 (8.4-10.2) mg/dL Total Bilirubin 0.6 (0.0-1.0) mg/dL AST 18 (5-37) U/L ALT 19 (0-40) U/L Alkaline Phosphatase 61 (39-117) U/L Troponin I High Sens (<3.5-35.0) ng/L Total Protein 7.4 (6.5-8.0) g/dL Albumin 4.3 (3.5-5.0) g/dL Urine Color Urine Appearance Urine pH (5.0-8.0) Ur Specific [place] (1.005-1.025) Urine Protein (NEG-TRACE) MG/DL Urine Glucose (UA) (NEG) MG/DL Urine Ketones (NEG) MG/DL Urine Blood (NEG) Urine Nitrite (NEG) Ur Leukocyte Esterase (NEG) Urine RBC (0) /HPF Urine WBC (0-4) /HPF Ur Squamous Epith Cells /LPF Urine Bacteria /LPF 02/13/21 02/13/21 02/13/21 Range/Units 05:47 06:23 09:12 WBC (4.8-10.8) X10*3/uL RBC (4.60-5.80) X10*6/uL Hgb (14.0-18.0) g/dl Hct (42.0-52.0) % MCV (80.0-98.0) fL MCH (27.0-33.0) pg MCHC (31.0-36.0) g/dl RDW (11.0-16.0) % Plt Count (160-400) X10*3/uL MPV (9.4-12.4) fL Immature Gran % (Auto) (0.0-0.4) % Neut % (Auto) (45-73) % Lymph % (Auto) (20-40) % [place] % (Auto) (2-11) % Eos % (Auto) (0-4) % Baso % (Auto) (0-2) % Lymph # (Auto) (1.2-4.9) X10*3/uL [place] # (Auto) (0.1-1.2) X10*3/uL Eos # (Auto) (0.0-0.4) X10*3/uL Baso # (Auto) (0.0-0.2) X10*3/uL Abs Immat Gran (auto) (0.00-0.03) X10*3/uL Absolute Neuts (auto) (2.0-8.3) x10*3/uL Absolute Nucleated RBC (0.0-0.012) X10*3/uL Nucleated RBC % (auto) (0.0-0.2) /100WBC Sodium (135-145) mmol/L Potassium (3.3-5.1) mmol/L Chloride (96-108) mmol/L Carbon Dioxide (22-29) mmol/L Anion Gap (12-20) BUN (9-16) mg/dL Creatinine (0.5-1.4) mg/dL Estim Creat Clear Calc Estimated GFR POC Glucose 168 H (60-115) mg/dL Random Glucose (60-115) mg/dL Calcium (8.4-10.2) mg/dL Total Bilirubin (0.0-1.0) mg/dL AST (5-37) U/L ALT (0-40) U/L Alkaline Phosphatase (39-117) U/L Troponin I High Sens < 3.5 (<3.5-35.0) ng/L Total Protein (6.5-8.0) g/dL Albumin (3.5-5.0) g/dL Urine Color YELLOW Urine Appearance CLEAR Urine pH 6.0 (5.0-8.0) Ur Specific [place] 1.015 (1.005-1.025) Urine Protein TRACE (NEG-TRACE) MG/DL Urine Glucose (UA) 500 H (NEG) MG/DL Urine Ketones NEG (NEG) MG/DL Urine Blood TRACE (NEG) Urine Nitrite NEG (NEG) Ur Leukocyte Esterase NEG (NEG) Urine RBC 0-2 (0) /HPF Urine WBC 0-2 (0-4) /HPF Ur Squamous Epith Cells TRACE /LPF Urine Bacteria NONE /LPF ECG Data Attestation: I personally reviewed and interpreted this ECG as follows: Interpretation: sinus rate 60, no sto or twave changes Discharge Plan Discharge Clinical Impression: Vasovagal syncope, Micturition syncope Patient Disposition: Home, Self-Care Instructions: Syncope (ED) Prescriptions: No Action Bariatric Multivitamins 45 mg iron- 800 mcg-120 mcg capsule 1 cap PO DAILY RF: 0 calcium citrate 1,000 mg tablet 1,000 mg PO DAILY RF: 0 Referrals: Physician,Unknown J [Primary Care Provider] - 1 week
[2021-02-13 07:14] VITALS: BP 102/68; BP 105/72; PULSE 61; PULSE 72
[2021-02-13 07:15] VITALS: BP 99/67; PULSE 68
[2021-02-13 08:49] VITALS: BP 104/66; PULSE 62; RESP 18; O2SAT 98
--- NOTE | 2021-02-13 08:50 | PC.NURSE ---
Pt is awake, ambulated to the bathroom with a steady gait without any complaints of dizziness.
[2021-02-13 09:24] LABS: Appearance Urine CLEAR; Color Urine YELLOW; Glucose Urine UA 500 MG/DL (NEG); Leukocyte Esterase Urine NEG (NEG); Nitrite Urine NEG (NEG); Specific Gravity - Urine 1.015 (1.005-1.025); UACC Culture Trigger NO; Urine Blood TRACE (NEG); Urine Ketones NEG (NEG); Urine Protein TRACE MG/DL (NEG-TRACE)
[2021-02-13 09:55] LABS: RBC Urine 0-2 /HPF (0); Squamous Epithelial Cell Urine TRACE /LPF; WBC Urine 0-2 /HPF (0-4)
== END 2021-02-13 11:09 | disposition home or self-care (01) ==
PROVIDERS: Emergency Provider Emergency Medicine
DX: R55 Syncope and collapse (principal); R31.9 Hematuria, unspecified; Z79.899 Other long term (current) drug therapy
CPT/HCPCS: 36415; 80053; 81001; 82947; 84484; 85025; 93005; 96361; 96374; 99285

== ENCOUNTER → 2021-02-14 08:16 | Outpatient (BNVA) | payer OTHER, SELFPAY | PROVIDERS: Visit Provider Dietitian, Registered | DX: E66.9 Obesity, unspecified (principal); Z68.37 Body mass index [BMI] 37.0-37.9, adult | CPT/HCPCS: 97803 ==

== ENCOUNTER → 2021-04-23 15:44 | Outpatient (BNVA) | payer OTHER, SELFPAY | PROVIDERS: Visit Provider Physician Assistant Surgical ==

== ENCOUNTER → 2021-05-25 15:30 | Outpatient (BNVA) | payer OTHER, SELFPAY | PROVIDERS: Visit Provider Physician Assistant Surgical | DX: E66.9 Obesity, unspecified (principal) ==

== ENCOUNTER → 2021-07-27 14:16 | Outpatient (BNVA) | payer OTHER, SELFPAY | PROVIDERS: Visit Provider Physician Assistant Surgical | DX: E66.3 Overweight (principal) ==

== ENCOUNTER → 2022-01-10 12:11 | Outpatient (RCR) | payer OTHER, SELFPAY ==
[2020-02-07 08:09] LABS: COVID-19 Test Negative (Negative)
[2020-02-21 07:32] LABS: COVID-19 Test Negative (Negative); IDNOW Serial# 55D5AD1C
[2020-03-11 14:00] LABS: SARS-COV-2 PCR UMBRL NOT DETECTED
[2020-03-22 08:12] LABS: SARS-COV-2 PCR UMBRL Not Detected
== END | disposition home or self-care (01) ==
LOC: HO.EMPCOV 02-07 06:28
PROVIDERS: Visit Provider Internal Medicine
DX: Z20.828 Contact with and (suspected) exposure to other viral communicable diseases (principal)
CPT/HCPCS: 87635; C9803; U0003

== ENCOUNTER 2022-03-01 07:06 | Outpatient (REF) | payer OTHER, SELFPAY ==
[2022-03-01 07:14] LABS: MANUAL DIFF FLAG NO
[2022-03-01 07:25] LABS: Basophils Percent Auto 0.5 % (0-2); Eosinophils Absolute Auto 0.1 X10*3/uL (0.0-0.4); Eosinophils Percent Auto 1.1 % (0-4); Hematocrit 43.9 % (42.0-52.0); Hemoglobin 14.2 g/dl (14.0-18.0); Imm Gran Abs Auto 0.02 X10*3/uL (0.00-0.03); Imm Gran Pct Auto 0.3 % (0.0-0.4); Lymphocytes Absolute Auto 1.9 X10*3/uL (1.2-4.9); Lymphocytes Percent Auto 25.6 % (20-40); Mean Corpuscular HGB Conc 32.3 g/dl (31.0-36.0); Mean Corpuscular Hemoglobin 26.7 pg (27.0-33.0); Mean Corpuscular Volume 82.5 fL (80.0-98.0); Monocytes Absolute Auto 0.4 X10*3/uL (0.1-1.2); Monocytes Percent Auto 5.6 % (2-11); Neutrophils Absolute Auto 4.9 x10*3/uL (2.0-8.3); Neutrophils Percent Auto 66.9 % (45-73); Platelet Count 251 X10*3/uL (160-400); Red Blood Count 5.32 X10*6/uL (4.60-5.80); Red Cell Distribution Width 13.2 % (11.0-16.0); White Blood Count 7.3 X10*3/uL (4.8-10.8)
[2022-03-01 07:55] LABS: Estimated Average Glucose 114 mg/dL; Hemoglobin A1c % 5.6 %
[2022-03-01 08:17] LABS: Alanine Aminotransferase 20 U/L (0-40); Albumin Level 4.5 g/dL (3.5-5.0); Alkaline Phosphatase 65 U/L (39-117); Anion Gap 11 (12-20); Aspartate Amino Transferase 22 U/L (5-37); Bilirubin Total 0.7 mg/dL (0.0-1.0); Blood Urea Nitrogen 29 mg/dL (9-16); C Reactive Protein < 0.10 mg/dL (< or = 0.50); Calcium 9.5 mg/dL (8.4-10.2); Carbon Dioxide 30 mmol/L (22-29); Chloride 100 mmol/L (96-108); Cholesterol 131 mg/dL; Estimated Glomerular Filt Rate > 60; Ferritin 157 ng/mL (20-250); Glucose Random 90 mg/dL (60-115); HDL Cholesterol 48 mg/dL; Insulin 2 uU/mL (2-29); Iron 78 mcg/dL (45-160); LDL Cholesterol Calculated 70 mg/dl; Percent Iron Saturation 28 % (15-50); Potassium 4.4 mmol/L (3.3-5.1); Sodium 137 mmol/L (135-145); TSH reflex Free T4 2.19 uIU/mL (0.32-4.0); Total Iron Binding Capacity 281 mcg/dL (228-428); Total Protein 7.3 g/dL (6.5-8.0); Triglycerides 68 mg/dL; Unsaturated Iron Binding 203 ug/dL
[2022-03-01 09:01] LABS: Folate 12.4 ng/mL (> or = 4.0)
[2022-03-01 09:52] LABS: Vitamin B12 977 pg/mL (200-900)
[2022-03-05 15:13] LABS: Calcium (PTHI) 9.6 mg/dL (8.6-10.3); PTHI 52 pg/mL (16-77)
[2022-03-07 05:58] LABS: Zinc 75 mcg/dL (60-130)
[2022-03-07 12:49] LABS: Vitamin A 38 mcg/dL (38-98)
[2022-03-10 14:43] LABS: Vitamin B1 <6 nmol/L (8-30)
== END 2022-03-01 07:07 | disposition home or self-care (01) ==
LOC: HO.LAB 07:06
PROVIDERS: Visit Provider Physician Assistant Surgical
DX: Z98.84 Bariatric surgery status (principal)
CPT/HCPCS: 36415; 80053; 80061; 82306; 82607; 82728; 82746; 83036; 83525; 83540; 83970; 84425; 84443; 84590; 84630; 85025; 86140

== ENCOUNTER → 2022-03-11 15:10 | Outpatient (BNVA) | payer OTHER, SELFPAY | PROVIDERS: Visit Provider Physician Assistant Surgical | DX: Z13.89 Encounter for screening for other disorder (principal) ==

== ENCOUNTER → 2022-04-03 08:30 | Outpatient (BNVA) | payer OTHER, SELFPAY | PROVIDERS: Visit Provider Surgery | DX: Z13.89 Encounter for screening for other disorder (principal) ==

== ENCOUNTER → 2022-04-18 06:02 | Day surgery (SDC) | payer OTHER, SELFPAY ==
[2022-04-03 10:14] VITALS: BMI 25.8
[2022-04-11 07:19] LABS: MANUAL DIFF FLAG NO
[2022-04-11 07:45] LABS: Basophils Percent Auto 0.5 % (0-2); Eosinophils Percent Auto 0.6 % (0-4); Hematocrit 42.1 % (42.0-52.0); Hemoglobin 13.3 g/dl (14.0-18.0); Imm Gran Abs Auto 0.02 X10*3/uL (0.00-0.03); Imm Gran Pct Auto 0.3 % (0.0-0.4); Lymphocytes Absolute Auto 1.6 X10*3/uL (1.2-4.9); Lymphocytes Percent Auto 24.9 % (20-40); Mean Corpuscular HGB Conc 31.6 g/dl (31.0-36.0); Mean Corpuscular Hemoglobin 26.3 pg (27.0-33.0); Mean Corpuscular Volume 83.4 fL (80.0-98.0); Mean Platelet Volume 10.5 fL (9.4-12.4); Monocytes Absolute Auto 0.3 X10*3/uL (0.1-1.2); Monocytes Percent Auto 4.9 % (2-11); Neutrophils Absolute Auto 4.4 x10*3/uL (2.0-8.3); Neutrophils Percent Auto 68.8 % (45-73); Platelet Count 255 X10*3/uL (160-400); Red Blood Count 5.05 X10*6/uL (4.60-5.80); Red Cell Distribution Width 13.2 % (11.0-16.0); White Blood Count 6.3 X10*3/uL (4.8-10.8)
[2022-04-11 08:10] LABS: INTERNATIONAL NORM RATIO 1.2 (0.9-1.1); Prothrombin Time 14.3 SEC (10.0-13.1)
[2022-04-11 08:13] LABS: Partial Thromboplastin Time 39.9 SEC (26.0-36.4)
[2022-04-11 08:17] LABS: Alanine Aminotransferase 28 U/L (0-40); Albumin Level 4.2 g/dL (3.5-5.0); Alkaline Phosphatase 51 U/L (39-117); Anion Gap 10 (12-20); Aspartate Amino Transferase 19 U/L (5-37); Bilirubin Total 0.6 mg/dL (0.0-1.0); Blood Urea Nitrogen 18 mg/dL (9-16); Calcium 9.5 mg/dL (8.4-10.2); Carbon Dioxide 32 mmol/L (22-29); Chloride 100 mmol/L (96-108); Creatinine Clr Calc Pharmacy 120.3; Estimated Glomerular Filt Rate > 60; Glucose Random 88 mg/dL (60-115); Potassium 4.3 mmol/L (3.3-5.1); Sodium 138 mmol/L (135-145); Total Protein 6.9 g/dL (6.5-8.0)
[2022-04-11 08:19] LABS: Estimated Average Glucose 108 mg/dL; Hemoglobin A1c % 5.4 %
--- NOTE | 2022-04-12 18:57 | MHC.SHP ---
Pre-Procedural Eval Section A Date of Service: 04/12/22 The patient is an INPATIENT: No The History & Physical has been completed within 30 days and I have reviewed it.: Yes Section B Chief Complaint: Excessive and redundant skin and subcutaneous tiss Relevant Family History (Specify if Yes): No Relevant Social History: None Present Medications: None Medical History: No relevant PMH History of Previous Operations: Relevant previous surgery/procedure and date(s) (lap sleeve gastrectomy) Allergies: Allergies Allergy/AdvReac Type Severity Reaction Status Date / Time shellfish derived Allergy Severe Hives/throat Verified 04/03/22 10:17 closes Penicillins [PENICILLINS] Allergy Intermediate Hives Verified 04/03/22 10:17 Review of Systems Sugical H&P ROS: Negative: Constitution, Cardiovascular, Respiratory, Neurological, Psychiatric, Hem-Onc, Allergic/Immunologic, Gastrointestinal, Genitourinary, Musculoskeletal, Integumentary, Endocrine and Eyes/Ears/Nose/Throat Exam Surgical H&P Exam: Normal: HEENT, Normal: Heart, Normal: Lungs, Normal: Extremities, Normal: Abdomen, Normal: Skin and Normal: Neurological Plan Diagnosis/Plan: Unchanged I have reviewed the history and physical and performed a pertinent physical examination on my patient. No changes have occurred unless specified. Time Spent With Patient Time: Total time managing care of this patient today ____ minutes.
--- NOTE | 2022-04-17 | ECG_ITS ---
Test Reason : pre op Blood Pressure : / mmHG Vent. Rate : 062 BPM Atrial Rate : 062 BPM P-R Int : 190 ms QRS Dur : 098 ms QT Int : 394 ms P-R-T Axes : 070 040 053 degrees QTc Int : 399 ms Normal sinus rhythm Normal ECG When compared with ECG of 13-FEB-2021 05:41, No significant change was found Referred By: Lisa Dumont Electronically Signed By:ANISHA JADE
--- NOTE | 2022-04-17 09:18 | HO.ANESPROP2 ---
Documented by User: Lisa Dumont NP 04/17/22 09:21 HPI - Anesthesia Eval Consult details Narrative: 32yo M for Panniculectomy, Bilateral Thighplasty s/p gastric sleeve 06/2020 with GA-ETT 7 PMFSH Active Problems Active Problems: All Active Problems (Updated 04/03/22 @ 11:33 by Tiago Guerrier MD) Cellulitis (Acute) Morbid obesity with BMI of 60.0-69.9, adult (Acute) Obesity (BMI 35.0-39.9 without comorbidity) (Acute) Obesity (BMI 30-39.9) (Acute) Overweight (Acute) Excess skin (Acute) BMI 40.0-44.9, adult (Acute) S/P laparoscopic sleeve gastrectomy (Acute) Intestinal malabsorption following gastrectomy (Acute) Past Medical History Medical History (Updated 04/03/22 @ 11:33 by Tiago Guerrier MD) Adjustment disorder, unspecified Asthma BMI 40.0-44.9, adult BMI 50.0-59.9, adult Intestinal malabsorption following gastrectomy Morbid obesity Preoperative examination Shortness of breath Sleep apnea with use of continuous positive airway pressure (CPAP) Vitamin D deficiency Family History Family History Father No problems noted. Mother No problems noted. Sister No problems noted. Sister No problems noted. Brother No problems noted. Surgical History Surgical History (Updated 04/03/22 @ 09:55 by Daphney Rushing RN) S/P laparoscopic sleeve gastrectomy Social History Social History Are you a primary critical care clinical nurse specialist to a significant other at home: No Do you presently have visiting nurse or other home services: No Alcohol intake: never Patient Tobacco Use Status: Never used Tobacco service: No Current occupational status: employed Meds Allergies Allergy/AdvReac Type Severity Reaction Status Date / Time shellfish derived Allergy Severe Hives/throat Verified 04/03/22 10:17 closes Penicillins [PENICILLINS] Allergy Intermediate Hives Verified 04/03/22 10:17 Home Medications Medication Instructions Recorded Confirmed Last Taken Type calcium citrate 1,000 mg tablet 1,000 mg PO DAILY 08/04/20 04/03/22 04/17/22 History [id number] 45 mg-folic 1 cap PO DAILY 08/04/20 04/03/22 04/17/22 History acid 800 mcg-vit K 120 mcg capsule (Bariatric Multivitamins) Exam Exam Date and Time: April 17, 2022917 Height,Weight and Vital Signs: Height 5 ft 6.5 in Weight 73.754 kg Pertinent Lab Results Pertinent Lab Results: Laboratory Tests 04/11/22 04/11/22 04/11/22 07:15 07:18 07:18 WBC 6.3 RBC 5.05 Hgb 13.3 L Hct 42.1 MCV 83.4 MCH 26.3 L MCHC 31.6 RDW 13.2 Plt Count 255 MPV 10.5 Immature Gran % (Auto) 0.3 Neut % (Auto) 68.8 Lymph % (Auto) 24.9 [place] % (Auto) 4.9 Eos % (Auto) 0.6 Baso % (Auto) 0.5 Lymph # (Auto) 1.6 [place] # (Auto) 0.3 Eos # (Auto) 0.0 Baso # (Auto) 0.0 Abs Immat Gran (auto) 0.02 Absolute Neuts (auto) 4.4 Absolute Nucleated RBC 0.000 Nucleated RBC % (auto) 0.0 PT 14.3 H INR 1.2 H APTT 39.9 H Sodium Potassium Chloride Carbon Dioxide Anion Gap BUN Creatinine Estim Creat Clear Calc Estimated GFR Random Glucose Estimat Average Glucose Hemoglobin A1c % Calcium Total Bilirubin AST ALT Alkaline Phosphatase Total Protein Albumin Blood Type O Positive Antibody Screen NEGATIVE 04/11/22 04/11/22 07:18 07:18 WBC RBC Hgb Hct MCV MCH MCHC RDW Plt Count MPV Immature Gran % (Auto) Neut % (Auto) Lymph % (Auto) [place] % (Auto) Eos % (Auto) Baso % (Auto) Lymph # (Auto) [place] # (Auto) Eos # (Auto) Baso # (Auto) Abs Immat Gran (auto) Absolute Neuts (auto) Absolute Nucleated RBC Nucleated RBC % (auto) PT INR APTT Sodium 138 Potassium 4.3 Chloride 100 Carbon Dioxide 32 H Anion Gap 10 L BUN 18 H Creatinine 0.81 Estim Creat Clear Calc 120.3 Estimated GFR > 60 Random Glucose 88 Estimat Average Glucose 108 Hemoglobin A1c % 5.4 Calcium 9.5 Total Bilirubin 0.6 AST 19 ALT 28 Alkaline Phosphatase 51 Total Protein 6.9 Albumin 4.2 Blood Type Antibody Screen Documented by User: Sotero Dennis MD 04/18/22 17:57 [facility] Past Medical History Medical History (Updated 04/03/22 @ 11:33 by Tiago Guerrier MD) Adjustment disorder, unspecified Asthma BMI 40.0-44.9, adult BMI 50.0-59.9, adult Intestinal malabsorption following gastrectomy Morbid obesity Preoperative examination Shortness of breath Sleep apnea with use of continuous positive airway pressure (CPAP) Vitamin D deficiency Functional capacity: independent ambulation Family History Family History Father No problems noted. Mother No problems noted. Sister No problems noted. Sister No problems noted. Brother No problems noted. Family history of problems with anesthesia: No Surgical History Surgical History (Updated 04/03/22 @ 09:55 by Daphney Rushing RN) S/P laparoscopic sleeve gastrectomy History of Problems with Anesthesia: No Social History Social History Are you a primary critical care clinical nurse specialist to a significant other at home: No Do you presently have visiting nurse or other home services: No Alcohol intake: never Patient Tobacco Use Status: Never used Tobacco service: No Current occupational status: employed Meds Allergies Allergy/AdvReac Type Severity Reaction Status Date / Time shellfish derived Allergy Severe Hives/throat Verified 04/03/22 10:17 closes Penicillins [PENICILLINS] Allergy Intermediate Hives Verified 04/03/22 10:17 Home Medications Medication Instructions Recorded Confirmed Last Taken Type calcium citrate 1,000 mg tablet 1,000 mg PO DAILY 08/04/20 04/03/22 04/17/22 History [id number]-lymu 45 mg-folic 1 cap PO DAILY 08/04/20 04/03/22 04/17/22 History acid 800 mcg-vit K 120 mcg capsule (Bariatric Multivitamins) Exam Airway Mallampati Class: II TM Dist: >3cm Neck ROM: Full Loose/Missing/Broken Teeth: Yes Heart: S1,S2 Lungs: b/l breath sounds Assessment and Plan Assessment Anesthesia Assessment: Anesthesia Plan Discussed and Chart Reviewed Final Anesthetic Review Family History of Problems with Anesthesia: No History of Problems with Anesthesia: No NPO: Yes ASA Class: II Final Preanesthetic Review: Meds/Allgs Chart Reviewed, Consent Obtained/Reviewed and Anes Risks/Benef Reviewed Patient Risk: Intermediate Procedure Risk: Intermediate Anesthetic Plan Anesthetic Plan: GA Disposition: Standard PACU
[2022-04-17 14:19] LABS: COVID-19 Test Negative (Negative); IDNOW Serial# 16C4AD1C
[2022-04-18] VITALS (13 sets, daily range): BP systolic 98–128; BP diastolic 58–78; PULSE 60–83; RESP 12–24; TEMP 36.4–36.9; O2SAT 96–100
[2022-04-18] MEDS: Lactated Ringers 1,000 ML 100 ML IVCONT (06:52)
--- NOTE | 2022-04-18 08:55 | PM.OP ---
Brief Operative Note Date of Service: 04/18/22 Pre-op diagnosis: Excessive skin abdomen and thighs due to massive weight loss Post-op diagnosis: same Procedure: PROCEDURE: Panniculectomy with umbilical transposition and bilateral subcutaneous fat flaps and bilateral thighplasty INDICATION: This a 32 year old female who underwent laparoscopic sleeve gastrectomy. He had an excellent result achieving a BMI of 26.5 kg/m2 with a total weight loss of 335.3lbs, or 58.4% of his TBWL. As a result, he has developed massive excesive skin and panniculitis which has not resolved despite continuous use of clotrimazole ointment as well as skin irritation. On exam he has extreme skin laxity due to massive weight loss, with the abdominal pannus completely hanging 4cm below the pubis. Panniculectomy and bilateral thighplasty were recommended. We discussed the two options for the panniculectomy of using a combined vertical and horizontal incisions or just a horizontal (bikini) incision. It was my recommendation to do only horizontal incision based on his body habitus and skin laxity. In addition, bilateral thighplasty will be performed. The patient agreed with this. Risks and complications were discussed with the patient including bleeding, infection, umbilical loss, flap necrosis, asymmetry, dehiscence, seroma, VTE. The patient understood the risks and was in agreement to proceed with surgery. PROCEDURE: The incisions were appropriately marked at the preop area with the patient standing and laying down. After induction of general anesthesia a Jacome catheter and pneumatic compression devices were placed. The patient was prepped and draped in the usual sterile manner and the incisions were marked again and confirmed. The thigh incisions were appropriately marked. The legs were flexed at the knees and abducted at the hip level.?The anterior incision was made first. I did not commit to the posterior incision until dissection was completed and I could assess the appropriate location for the posterior incision to prevent excessive tension. Cautery was used to separate the skin from subcutaneous tissues. Careful attention was paid to make sure that the plain of excision was superficial as close to the skin as possible and superior to the fascia. The right thigh skin was 38 cm x 10 cm and the left 32 cm x 12 cm. Skin was closed in two layers using interrupted 3.0 Monocryl sutures for the dermis and 4.0 subcuticular Monocryl suture for the skin. The skin was infiltrated with lidocaine and epinephrine. The #10 blade scalpel was used for the large incisions and the #15 blade scalpel for the umbilicus. Cautery was used to divide the subcutaneous tissues until the fascia was identified. Then I used the Thunderbeat (Olympus) to separate the pannus from the fascia. The inferior incision was made initially and I mobilized the flap for a several centimeters cephalad to the umbilicus. The umbilicus was incised circumferentially and detached from the surrounding tissues all the way to the fascia while its stalk was preserved. With the patient in reflex position I confirmed that the skin flaps were appropriate and would allow for the tissues to come together with reasonable tension. At that point a horizontal incision was made 4 cm above the umbilicus. #10 blade was used for the skin, cautery for the dermis and the Thunderbeat for the remaining tissues. A subcutaneous fat flap was raised from the upper skin flap in order to fill the space under the skin and support the closure of the two flaps. In addition the inferior flap was mobilized caudally for a few centimeters to create a space for the subcutaneous fat flap as well as relieve tension from the closure. A circumferential incision was made at the area where the umbilicus would be re-implanted. The umbilicus was appropriately oriented and was delivered through the defect and was secured in place with a [place]. No bleeding was noted anywhere. One HUMBLE drain was placed from the left corner of the horizontal incision across the wound and was secured in place with a silk suture. A total of 14ml of Zynrelef was applied on top of the fascia and under the subcutaneous fat flaps. The subcutaneous fat flap was secured under the inferior flap with several interrupted 3.0 Monocryl sutures. The two flaps were brought together and were attached at the midline of the horizontal incision with a #3.0 Monocryl suture. At that point the umbilicus was properly oriented and was re-approximated to the skin with 8 interrupted 3.0 Monocryl sutures. In a similar fashion the skin flaps were re-approximated with multiple 3.0 Monocryl sutures. The skin was closed in all incisions and umbilicus with 4.0 Monocryl sutures. Steri-strips, xeroform gauzes and gauzes were used to cover the incisions. An abdominal binder was also placed. The was awaken and was transferred to the recover room in a stable condition. I was present and performed the entire procedure. Mr. Carias and Ms. Abel were the assistants. Jus Guerrier MD, PhD, FACS Surgeon: Tiago Guerrier MD Surgeon: Tiago Guerrier MD Anesthesia: GETA, local and other (14ml Zynrelef) Was an Program Director/Morning Show Host used for this Procedure?: No Program Director/Morning Show Host: Franck Carias Estimated blood loss (mL): 50 IV fluids (mL): 3,500 Pathology: other (1) Abdominal pannus, 2) bilateral thigh skin) Condition: stable Disposition: PACU
[2022-04-18] MEDS: HYDROmorphone HCl 0.5 MG/0.5 ML SYRINGE 0.25 MG IVPUSH (18:39)
--- NOTE | 2022-04-19 13:37 | W.MHC.F2F ---
Service Date Service Date: 04/19/22 Encounter Date of encounter: 04/18/22 Reasons for Services Signs and symptoms assessed: s/p panniculectomy and bilateral thighplasty Reason for care home: wound care and other (drain care) Homebound: Leaving the home is medically contraindicated at this time without the asist of a device and/or another person due th the listed conditions above and below. Reason homebound: unable to drive Certification: Based on the above findings, I certify that this patient is confined to the home and needs intermittent care home care, physical therapy and/or speech therapy, or continues to need occupational therapy. The patient is under my care, and I have initiated the establishment of the plan of care. The patient will be followed by a physician who will periodically review the plan of care. Time Spent With Patient Time: Total time managing care of this patient today ____ minutes.
== END | disposition home or self-care (01) ==
PROVIDERS: Physician Assistant Surgical; Visit Provider Surgery
PROC: 0JB80ZZ Excision of Abdomen Subcutaneous Tissue and Fascia, Open Approach (ICD-10-PCS; CPT 15830; principal; 2022-04-18 08:10)
PROC: (CPT 15830; 2022-04-18 08:10)
DX: L98.7 Excessive and redundant skin and subcutaneous tissue (principal); K91.2 Postsurgical malabsorption, not elsewhere classified; Z90.3 Acquired absence of stomach [part of]; Z98.84 Bariatric surgery status; J45.909 Unspecified asthma, uncomplicated; G47.33 Obstructive sleep apnea (adult) (pediatric); E55.9 Vitamin D deficiency, unspecified; E66.3 Overweight; Z68.26 Body mass index [BMI] 26.0-26.9, adult; Z99.89 Dependence on other enabling machines and devices; Z88.0 Allergy status to penicillin
CPT/HCPCS: 15830; 15847; 15832; 36415; 80053; 83036; 85025; 85610; 85730; 86850; 86900; 86901; 87635; 88304; 93005; C9088; J0131; J1170; J1956; J2250; J2370; J2405; J2550; J3010; J3370

== ENCOUNTER → 2022-04-25 14:22 | Outpatient (BNVA) | payer OTHER, SELFPAY | PROVIDERS: Visit Provider Physician Assistant Surgical | DX: Z13.89 Encounter for screening for other disorder (principal) ==

== ENCOUNTER → 2022-05-03 13:49 | Outpatient (BNVA) | payer OTHER, SELFPAY | PROVIDERS: Visit Provider Physician Assistant Surgical | DX: Z13.89 Encounter for screening for other disorder (principal) ==

== ENCOUNTER → 2022-05-09 15:31 | Outpatient (BNVA) | payer OTHER, SELFPAY | PROVIDERS: Visit Provider Physician Assistant Surgical | DX: Z13.89 Encounter for screening for other disorder (principal) ==

== ENCOUNTER → 2022-05-20 11:52 | Outpatient (BNVA) | payer OTHER, SELFPAY | PROVIDERS: Visit Provider Physician Assistant Surgical | DX: Z13.89 Encounter for screening for other disorder (principal) ==

== ENCOUNTER → 2022-05-29 12:53 | Outpatient (BNVA) | payer OTHER, SELFPAY | PROVIDERS: Visit Provider Physician Assistant Surgical | DX: Z13.89 Encounter for screening for other disorder (principal) ==

== ENCOUNTER → 2022-06-03 14:16 | Outpatient (BNVA) | payer OTHER, SELFPAY | PROVIDERS: Visit Provider Dietitian, Registered | DX: Z90.3 Acquired absence of stomach [part of] (principal) | CPT/HCPCS: 97803 ==

== ENCOUNTER → 2022-06-12 10:00 | Outpatient (BNVA) | payer OTHER, SELFPAY | PROVIDERS: Visit Provider Physician Assistant Surgical | DX: Z13.89 Encounter for screening for other disorder (principal) ==

== ENCOUNTER → 2022-07-04 14:10 | Outpatient (BNVA) | payer OTHER, SELFPAY | PROVIDERS: Visit Provider Dietitian, Registered | DX: E66.9 Obesity, unspecified (principal); Z98.84 Bariatric surgery status; Z98.890 Other specified postprocedural states | CPT/HCPCS: 97803 ==

== ENCOUNTER → 2022-07-18 15:06 | Outpatient (BNVA) | payer OTHER, SELFPAY | PROVIDERS: Visit Provider Physician Assistant Surgical | DX: Z13.89 Encounter for screening for other disorder (principal) ==

== ENCOUNTER → 2023-01-14 14:54 | Outpatient (BNVA) | payer OTHER, SELFPAY | PROVIDERS: Visit Provider Dietitian, Registered | DX: E66.9 Obesity, unspecified (principal); Z98.84 Bariatric surgery status; Z71.3 Dietary counseling and surveillance | CPT/HCPCS: 97803 ==

== ENCOUNTER 2023-07-21 13:50 | Outpatient (AMB) | payer OTHER, SELFPAY ==
--- NOTE | 2023-07-21 13:33 | A.OFFVIS_ITS ---
VS Expanded 07/21/23 13:38 Height 5 ft 6.5 in Weight 170 lb BMI 27.0 Intake Visit Reasons: (telephone ) PO LSG 07/19/20 Allergies shellfish derived Allergy (Severe, Verified 08/22/22 10:01) Hives/throat closes Penicillins [PENICILLINS] Allergy (Intermediate, Verified 08/22/22 10:01) Hives Medication List - Last Reconciled 07/21/23 by PEÑA Herzog calcium citrate 1,000 mg PO DAILY gsgupmxvixfi-bul-xmyc-FA-vit K 45 mg iron- 800 mcg-120 mcg (Bariatric Multivitamins) 1 cap PO DAILY thiamine HCl (vitamin B1) 100 mg PO DAILY HPI Comments Details: This?is a?33?yo male who is s/p LSG 07/19/2020. Presents for 3 year post op visit. Weight at last visit on 07/18/2022 was 156.4 pounds with a BMI of 24.8, weight today is 170 pounds wih a BMI of 27.? No complaints of nausea, emesis, abdominal pain or reflux, or constipation. Everything continues to be well healed from skin removal surgeries. Present meal plan includes: Has tried to add more healthy carbs into meal plan to help with fatigue and weakness. Gets adequate protein, sometimes more than he needs- yesterday got 177g. Continues to track diligently and stays within 1600 calories. Will have shakes or bars on days he works, when he doesn't have time to eat as much. Will try to prep 2 meals. Hasn't been taking MVI. Exercise: Has been focusing mainly strength training and building muscle, has also maintain his cardio routine in addition- 20 minutes, plus 17k steps at work [facility] Medical History (Updated 09/16/22 @ 08:50 by Vanessa Perez) BMI 40.0-44.9, adult Intestinal malabsorption following gastrectomy Shortness of breath Preoperative examination Adjustment disorder, unspecified BMI 50.0-59.9, adult Vitamin D deficiency Asthma Sleep apnea with use of continuous positive airway pressure (CPAP) Morbid obesity Surgical History S/P thighplasty S/P panniculectomy S/P laparoscopic sleeve gastrectomy Family History Father No problems noted. Mother No problems noted. Sister No problems noted. Sister No problems noted. Brother No problems noted. Social History Are you a primary insurance healthcare representative to a significant other at home: No Do you presently have visiting nurse or other home services: No Alcohol intake: never Patient Tobacco Use Status: Never used Tobacco service: No Current occupational status: employed Telehealth Telehealth Telehealth Platform: Telephone Location of provider rendering services: other Location of patient: address on file Patient Identification confirmed using: Name, : Yes Telehealth method: voice only Patient verbally consented to treatment: Yes Patient verbally consented to billing insurance company: Yes Patient informed of any privacy concerns related to visit: Yes Minutes spent on Phone/Video with Pt.: 15 Assessment & Plan Assessment & Plan (1) Overweight: Code(s): E66.3 - Overweight Category: Medical (2) S/P laparoscopic sleeve gastrectomy: Comment: 06/2020 Code(s): Z98.84 - Bariatric surgery status Category: Medical (3) S/P panniculectomy: Comment: 04/18/22 Tiago Guerrier MD Code(s): Z98.890 - Other specified postprocedural states Category: Medical (4) S/P thighplasty: Comment: 04/18/22 Tiago Guerrier MD Code(s): Z98.890 - Other specified postprocedural states Category: Medical Plan Offered BH appt to help with his thoughts about food, cheat meals etc and pt will consider if he feels like his thoughts about food are affecting his progress/motivation/mood. He feels good at current weight and has a good exercise regimen with combo of cardio and weight training. Annual labs ordered. Can f/u again in 1 year, or sooner if pt desires sooner appt between now and then. Patient is overweight and is not considered stable at this time. I spent a total of 30 minutes reviewing/updating records, examining the patient and counseling the patient on weight management as detailed above. Orders: Orders Hemoglobin A1c Today E66.3 - Overweight, Z98.84 - Bariatric surgery status Complete Blood Count Auto Diff Today E66.3 - Overweight, Z98.84 - Bariatric surgery status IRON PROFILE Today E66.3 - Overweight, Z98.84 - Bariatric surgery status Comprehensive Met. Panel Today E66.3 - Overweight, Z98.84 - Bariatric surgery status Vitamin B12 and Folate Today E66.3 - Overweight, Z98.84 - Bariatric surgery status Zinc Today E66.3 - Overweight, Z98.84 - Bariatric surgery status C Reactive Protein Today E66.3 - Overweight, Z98.84 - Bariatric surgery status Insulin Today E66.3 - Overweight, Z98.84 - Bariatric surgery status Lipid Panel Today E66.3 - Overweight, Z98.84 - Bariatric surgery status Vitamin B1 Today E66.3 - Overweight, Z98.84 - Bariatric surgery status Vitamin A Today E66.3 - Overweight, Z98.84 - Bariatric surgery status TSH reflex Free T4 Today E66.3 - Overweight, Z98.84 - Bariatric surgery status Ferritin Today E66.3 - Overweight, Z98.84 - Bariatric surgery status Vitamin D 25-OH Total Today E66.3 - Overweight, Z98.84 - Bariatric surgery status
[2023-07-21 13:38] VITALS: BMI 27.0
== END 2023-07-21 13:54 | disposition home or self-care (01) ==
LOC: HO.HBS 13:51
PROVIDERS: Visit Provider Physician Assistant Surgical
DX: E66.3 Overweight (principal); Z98.84 Bariatric surgery status; Z98.890 Other specified postprocedural states
CPT/HCPCS: 99214